=== PATIENT | female | born 1990 | race Hispanic/Latino ===

== ENCOUNTER 2022-06-07 01:03 | Emergency (ER) | payer SELFPAY ==
[~2022-06-07] VITALS: Ht 162.6 cm; Wt 62.6 kg
== END 2022-06-07 02:44 | disposition home or self-care (01) ==
LOC: FSED 01:07
DX: R07.89 Other chest pain (principal); F17.210 Nicotine dependence, cigarettes, uncomplicated
CPT/HCPCS: 71046; 80053; 82553; 84484; 85025; 99283